=== PATIENT | female | born 1950 | race Caucasian/White ===

== ENCOUNTER 2017-07-26 18:41 | Emergency (ER) | payer MEDICAID ==
[2017-07-26 19:46] LABS: ADD MAN DIFF? NO
[2017-07-26 19:48] LABS: BASOPHILS % 0.2 % (0.0-2.0); EOSINOPHILS % 0.3 % (0.0-7.0); HEMATOCRIT 40.5 % (37.0-47.0); LYMPHOCYTES % 10.5 % (15.0-51.0); MEAN CORPUSCULAR HEMOGLOBIN 30.5 pg (29.0-33.0); MEAN CORPUSCULAR HGB CONC 34.6 g/dl (32.0-37.0); MEAN CORPUSCULAR VOLUME 88.2 fl (82.0-101.0); MEAN PLATELET VOLUME 9.7 fl (7.4-10.4); MONOCYTE # 0.4 10^3/ul (0.3-0.9); MONOCYTES % 4.9 % (0.0-11.0); NEUTROPHIL # 7.6 10^3/ul (1.6-7.5); NEUTROPHILS % 83.8 % (39.0-77.0); PLATELET COUNT 194 10^3/UL (140-415); RED BLOOD COUNT 4.59 10^6/ul (4.20-5.40); RED CELL DISTRIBUTION WIDTH 12.8 % (11.5-14.5)
[2017-07-26 20:10] LABS: INR 0.98; PARTIAL THROMBOPLASTIN TIME 26.1 Sec (25.0-35.0); PROTIME 13.1 Sec (11.9-14.9)
[2017-07-26 20:13] LABS: ALANINE AMINOTRANSFERASE 61 IU/L (13-69); ALBUMIN 4.4 g/dl (3.3-4.9); ALBUMIN/GLOBULIN RATIO 1.12; ALKALINE PHOSPHATASE 97 IU/L (42-121); ANION GAP 16 (8-16); ASPARTATE AMINO TRANSFERASE 43 IU/L (15-46); BILIRUBIN,INDIRECT 0.4 mg/dl (0-1.1); BILIRUBIN,TOTAL 0.4 mg/dl (0.2-1.3); BLOOD UREA NITROGEN 15 mg/dl (7-20); CALCIUM 9.1 mg/dl (8.4-10.2); CARBON DIOXIDE 26 mmol/L (21-31); CHLORIDE 101 mmol/L (97-110); CREATININE 0.58 mg/dl (0.44-1.00); D-DIMER 458.92 ng/ml (<460); GLUCOSE 129 mg/dl (70-220); POTASSIUM 3.8 mmol/L (3.5-5.1); SODIUM 139 mmol/L (135-144); TOTAL PROTEIN 8.3 g/dl (6.1-8.1)
[2017-07-26 20:25] LABS: TROPONIN-I < 0.012 ng/ml (0.00-0.12)
[2017-07-26] MEDS: SOD CHLORIDE 0.9% 500 ML IV ×2 (20:35→22:37)
[2017-07-26] MEDS: KETOROLAC 30 MG INJ IV (20:35)
[2017-07-26] MEDS ORDERED: ONDANSETRON 4 MG INJ (20:44)
[2017-07-26] MEDS: ONDANSETRON 4 MG INJ IV (21:03)
[2017-07-26] MEDS: ACETAMINOPHEN 500 MG TAB PO (22:38)
== END 2017-07-26 23:30 | disposition home or self-care (01) ==
LOC: E/R 18:41
DX: M54.6 Pain in thoracic spine (principal); R11.2 Nausea with vomiting, unspecified; I10 Essential (primary) hypertension; R07.9 Chest pain, unspecified; Z79.82 Long term (current) use of aspirin
CPT/HCPCS: 36415; 71010; 80053; 84484; 85025; 85378; 85610; 85730; 93005; 96374; 96375; 99285-25